=== PATIENT | female | born 1950 | race Caucasian/White ===

== ENCOUNTER 2020-08-03 04:08 | Emergency (ER) | payer MEDICARE, BC ==
--- NOTE | 2020-08-03 04:57 | EDM.PDOC ---
ED HPI GENERAL MEDICAL PROBLEM - General Chief Complaint: Gastrointestinal Problem Stated Complaint: LOWER ABDOMINAL PAIN EXCESSIVE BLEEDING/DIARRHEA Time Seen by Provider: 08/03/20 04:28 Source of Information: Reports: Patient History Limitations: Reports: Physical Impairment (Patient is very hard of hearing, and forgot her hearing aids) - History of Present Illness INITIAL COMMENTS - FREE TEXT/NARRATIVE: Mrs. Monreal is a pleasant 70-year-old woman who now presents to the ED with a lower GI bleed. She states that she developed diarrhea around 23:30 last night, which then changed to just bloody output around 23:00. She states that around that time, she may have passed out, since she found herself on the floor, although she reports that she was uninjured. She subsequently showered, washed her bed sheets, then slept until this morning. She states that she has had bleeding all night, although it appears to be diminishing. She reports having some minimal intermittent lower abdominal cramps. No associated nausea. She denies prior similar symptoms. The patient states that she did not take any [id number] or home remedies to try to address any of her symptoms. The patient states that she has never undergone an EGD or colonoscopy. Here in the ED, the patient is found to be hemodynamically stable, afebrile, saturating 98% on room air. Prior to last night, the patient denies having a recent fever, chills, sore throat, ear pain, nasal or sinus congestion, cough, dyspnea, chest pain, palpitations, nausea, vomiting, constipation, diarrhea, abdominal pain, urinary symptoms, recent weight gain or weight loss, recent bloody bowel movements or black bowel movements, recent joint aches, headaches, or rashes. The patient's PCP is Dr. Milagros Anderson. The patient states that she has an appointment to follow-up with Dr. Anderson on 08/18/2020. The patient states that she received an influenza vaccine this season. Bilateral Lower Abdomen Pain Score (Numeric/FACES): 3 - Related Data Allergies Allergy/AdvReac Type Severity Reaction Status Date / Time penicillin V Allergy Cannot Verified 05/15/17 11:10 Remember sulfacetamide Allergy Rash Verified 05/15/17 11:11 Home Meds: Home Meds . [Unable to Verify Home Med List] 08/03/20 [History] Past Medical History HEENT History: Reports: Hard of Hearing (wears hearing aids), Impaired Vision (wears glasses) Cardiovascular History: Reports: High Cholesterol, Hypertension [employer] History: Reports: Other (See Below) (Vaginal prolapse) Endocrine/Metabolic History: Reports: Hypothyroidism, Obesity/BMI 30+ Oncologic (Cancer) History: Reports: Breast (left, s/p lumpectomy + RTx, 2016) - Past Surgical History Female Surgical History: Reports: Hysterectomy (partial) Oncologic Surgical History: Reports: Lumpectomy (left) Social & Family History - Tobacco Use Tobacco Use Status *Q: Never Tobacco User - Alcohol Use Alcohol Use History: No - Recreational Drug Use Recreational Drug Use: No - Living Situation & Occupation Living situation: Reports: , Alone Occupation: Retired ED ROS GENERAL - Review of Systems Review Of Systems: Comprehensive ROS is negative, except as noted in HPI. ED EXAM, GI/ABD - Physical Exam Exam: See Below Exam Limited By: No Limitations General Appearance: Alert, WD/WN, No Apparent Distress Eyes: Bilateral: Normal Appearance, EOMI Ears: Normal External Exam, Hearing Loss Nose: Normal Inspection Throat/Mouth: Normal Inspection, Normal Lips, Normal Voice, No Airway Compromise Head: Atraumatic, Normocephalic Neck: Normal Inspection, Full Range of Motion Respiratory/Chest: No Respiratory Distress, Lungs Clear, Normal Breath Sounds, No Accessory Muscle Use Cardiovascular: Normal Peripheral Pulses, Regular Rate, Rhythm, No Edema, No Gallop, No JVD, No Murmur, No Rub GI/Abdominal Exam: Normal Bowel Sounds, Soft, Non-Tender (including suprapubically), No Organomegaly, No Distention, No Abnormal Bruit, No Mass Rectal (Female) Exam: Normal Rectal Tone, Bloody Stool (no stool in the rectum, but blood is present on the finger), Heme + Stool Back Exam: Normal Inspection, Full Range of Motion, NT Extremities: Normal Inspection, Normal Range of Motion, No Pedal Edema, Normal Capillary Refill Neurological: Alert, Oriented, Normal Cognition, No Motor/Sensory Deficits Psychiatric: Normal Affect Skin Exam: Warm, Dry, Intact, Normal Color, No Rash Course - Vital Signs Last Recorded V/S: Last Vital Signs Temp 35.8 C L 08/03/20 04:25 Pulse 100 08/03/20 04:25 Resp 14 08/03/20 04:25 BP 138/69 11/16/20 04:25 Pulse Ox 98 08/03/20 04:25 Orthostatic Blood Pressure [ 155/76 Sitting] Orthostatic Blood Pressure [ 164/73 Supine] - Orders/Labs/Meds Orders: Active Orders 24 hr Category Date Time Status Orthostatic Vital Signs [RC] STAT Care 08/03/20 04:37 Active Labs: Laboratory Tests 08/03/20 08/03/20 08/03/20 Range/Units 04:36 04:36 04:36 WBC 13.26 H (3.98-10.04) K/mm3 RBC 4.28 (3.98-5.22) M/mm3 Hgb 14.0 (11.2-15.7) gm/dl Hct 40.4 (34.1-44.9) % MCV 94.4 (79.4-94.8) fl MCH 32.7 H (25.6-32.2) pg MCHC 34.7 (32.2-35.5) g/dl RDW Std Deviation 42.3 (36.4-46.3) fL Plt Count 286 (182-369) K/mm3 MPV 9.2 L (9.4-12.3) fl Neutrophils % (Manual) 91 H (40-60) % Band Neutrophils % 3 (0-10) % Lymphocytes % (Manual) 5 L (20-40) % Atypical Lymphs % 0 % Monocytes % (Manual) 1 L (2-10) % Eosinophils % (Manual) 0 L (0.7-5.8) % Basophils % (Manual) 0 L (0.1-1.2) Platelet Estimate Adequate RBC Morph Comment Normal PT 10.8 (9.7-12.0) SECONDS INR 1.01 APTT 25.3 (21.7-31.4) SECONDS Sodium 135 L (136-145) mEq/L Potassium 4.5 (3.5-5.1) mEq/L Chloride 99 (98-107) mEq/L Carbon Dioxide 21 (21-32) mEq/L Anion Gap 19.5 H (5-15) BUN 19 H (7-18) mg/dL Creatinine 1.2 H (0.55-1.02) mg/dL Est Cr Clr Drug Dosing 38.75 mL/min Estimated GFR (MDRD) 45 (>60) mL/min BUN/Creatinine Ratio 15.8 (14-18) Glucose 229 H (80-115) mg/dL Calcium 9.5 (8.5-10.1) mg/dL Magnesium 2.1 (1.8-2.4) mg/dl Total Bilirubin 0.6 (0.2-1.0) mg/dL AST 30 (15-37) U/L ALT 60 H (14-59) U/L Alkaline Phosphatase 71 (46-116) U/L Total Protein 7.2 (6.4-8.2) g/dl Albumin 4.1 (3.4-5.0) g/dl Globulin 3.1 gm/dL Albumin/Globulin Ratio 1.3 (1-2) Meds: Medications Discontinued Medications Generic Name Dose Route Start Last Admin Trade Name Freq PRN Reason Stop Dose Admin Ondansetron HCl 4 mg 08/03/20 05:53 08/03/20 06:00 Zofran IVPUSH 08/03/20 05:54 4 mg ONETIME ONE Administration - Re-Assessments/Exams Free Text/Narrative Re-Assessment/Exam: 08/03/20 04:55 As above, the patient developed diarrhea around 22:30 last night, followed by bright red blood per rectum around 23:00, lasting all night, although decreasing in frequency. He believes that she suffered a syncopal episode sometime around 22:30 to 23:00 last night, but afterwards she showered, washed her bed sheets, and slept. Here in the ED, she is hemodynamically stable, with a grossly unremarkable physical exam, however, she does have bright red blood on the finger on rectal exam, which is grossly heme positive. I have ordered a work-up that includes orthostatics, CBC, CMP, magnesium level, and coags. 08/03/20 05:49 The patient is not orthostatic. Her CBC is remarkable for WBC count elevated at 13.26, with the remainder of her CBC being unremarkable. Her CMP is remarkable for a sodium at the lower limits of normal of 135, and anion gap mildly elevated at 19.5, but with a bicarbonate normal at 21, a BUN/Cr elevated at 19/1.2, and a blood glucose elevated at 229. Her ALT is slightly elevated at 60, with an AST normal at 30, and the remainder of her CMP being unremarkable. Her magnesium level is within normal limits at 2.1. Her coags are within normal limits. 08/03/20 06:41 Test results discussed with the patient. As above, today's work-up is grossly unremarkable. I believe she can safely be discharged home. I would like her to follow-up with her PCP to arrange for an outpatient colonoscopy. She also needs to be reevaluated for her, which she states she has had in the past. If her symptoms worsen, I would like her to return to the ED for reevaluation. Departure - Departure Time of Disposition: 06:42 Disposition: Home, Self-Care 01 Condition: Good Clinical Impression: Lower GI bleed, Hyperglycemia - Discharge Information *PRESCRIPTION DRUG MONITORING PROGRAM REVIEWED*: Not Applicable *COPY OF PRESCRIPTION DRUG MONITORING REPORT IN PATIENT MICHAEL: Not Applicable Referrals: Milagors Giang MD [Primary Care Provider] - Forms: ED Department Discharge Additional Instructions: You were seen in the emergency room for bloody diarrhea and possibly passing out. Work-up in the ER included positional blood pressure checks, and blood tests. Your positional blood pressure checks were unremarkable. You are not intravascularly dry. Your blood tests found that your blood sugar was elevated at 229, indicating that you may have diabetes. Further evaluation is necessary. The remainder of your blood tests were unremarkable. You are not anemic. As discussed, in order to determine the source of your lower GI bleed, you need to undergo a colonoscopy. We recommend that you follow-up with your PCP, Dr. Milagros Anderson, at the next available appointment, to arrange for a colonoscopy. If any other problems, including worsening of your symptoms, please do not hesitate to return to the ER. Sepsis Event Note (ED) - Evaluation Sepsis Screening Result: No Definite Risk - Focused Exam Vital Signs: Vital Signs Temp Pulse Resp BP Pulse Ox 08/03/20 04:25 35.8 C L 100 14 138/69 98 - My Orders Last 24 Hours: My Active Orders 08/03/20 04:37 Orthostatic Vital Signs [RC] STAT - Assessment/Plan Last 24 Hours: My Active Orders 08/03/20 04:37 Orthostatic Vital Signs [RC] STAT
[2020-08-03] MEDS ORDERED: Ondansetron 4 MG/2 ML SDV IVPUSH ONE (05:53)
== END 2020-08-03 06:58 | disposition home or self-care (01) ==
LOC: JD.ED 04:08
DX: K92.2 Gastrointestinal hemorrhage, unspecified (principal); R73.9 Hyperglycemia, unspecified; I10 Essential (primary) hypertension; E66.9 Obesity, unspecified; Z68.32 Body mass index [BMI] 32.0-32.9, adult; Z88.0 Allergy status to penicillin; Z88.2 Allergy status to sulfonamides
CPT/HCPCS: 36415; 80053; 83735; 85007; 85027; 85610; 85730; 96374; 99284; J2405

== ENCOUNTER 2022-08-31 16:18 | Emergency (ER) | payer MEDICARE, BC ==
[2022-08-31] MEDS ORDERED: Sodium Chloride 0.9% 10 ML Syringe FLUSH PRN (16:27)
[2022-08-31] MEDS ORDERED: Iopamidol 755 Mg/ML 100 ML Bottle IVPUSH ONE (16:29)
[2022-08-31] MEDS ORDERED: Sodium Chloride 0.9% 10 ML Syringe FLUSH ONE (16:29)
[2022-08-31] MEDS ORDERED: Sodium Chloride 0.9% 100 ML IV SCH (16:30)
== END 2022-08-31 21:12 | disposition home or self-care (01) ==
LOC: JD.ED 16:21
DX: I67.1 Cerebral aneurysm, nonruptured (principal); R40.4 Transient alteration of awareness; I44.0 Atrioventricular block, first degree; I10 Essential (primary) hypertension; E66.9 Obesity, unspecified; Z68.32 Body mass index [BMI] 32.0-32.9, adult; Z88.0 Allergy status to penicillin; Z88.2 Allergy status to sulfonamides
CPT/HCPCS: 36415; 70450; 70496; 70498; 80053; 84484; 85025; 85610; 85730; 93005; 93225; 93226; 99285; J3490; Q9967